=== PATIENT | male | born 1965 | race Caucasian/White ===

== ENCOUNTER → 2023-11-27 08:37 | Outpatient (BNVA) | payer OTHER, SELFPAY | PROVIDERS: PCP Family Medicine; Visit Provider Family Medicine | DX: Z12.11 Encounter for screening for malignant neoplasm of colon (principal); Z80.0 Family history of malignant neoplasm of digestive organs; H26.9 Unspecified cataract; E78.5 Hyperlipidemia, unspecified; E11.9 Type 2 diabetes mellitus without complications; Z12.5 Encounter for screening for malignant neoplasm of prostate; Z79.899 Other long term (current) drug therapy | CPT/HCPCS: 80053; 80061; 82043; 82607; 83036; 84443 ==

== ENCOUNTER → 2024-05-18 14:54 | Outpatient (BNVA) | payer OTHER, SELFPAY | PROVIDERS: PCP Family Medicine; Visit Provider Family Medicine | DX: E11.9 Type 2 diabetes mellitus without complications (principal) | CPT/HCPCS: 80048; 83036 ==

== ENCOUNTER → 2024-06-02 13:46 | Outpatient (BNVA) | payer OTHER, SELFPAY | PROVIDERS: PCP Family Medicine; Visit Provider Family Medicine | DX: N20.0 Calculus of kidney (principal) | CPT/HCPCS: 81000 ==

== ENCOUNTER → 2024-08-17 14:29 | Outpatient (BNVA) | payer OTHER, SELFPAY | PROVIDERS: PCP Family Medicine; Visit Provider Family Medicine | DX: E11.9 Type 2 diabetes mellitus without complications (principal) | CPT/HCPCS: 80053; 80061; 82607; 83036 ==

== ENCOUNTER → 2024-11-16 14:55 | Outpatient (BNVA) | payer OTHER, SELFPAY | PROVIDERS: PCP Family Medicine; Visit Provider Family Medicine | DX: E11.9 Type 2 diabetes mellitus without complications (principal) | CPT/HCPCS: 80053; 80061; 82607; 83036 ==

== ENCOUNTER 2025-01-30 18:25 | Inpatient (IN) | payer OTHER, SELFPAY ==
[2025-01-30] VITALS (11 sets, daily range): BP systolic 119–163; BP diastolic 62–89; PULSE 72–98; RESP 11–21; TEMP 36.7–36.9; O2SAT 89–97; BMI 24.5
--- NOTE | 2025-01-30 18:37 | CTR_ITS ---
PROCEDURE INFORMATION: Exam: CTA Head With Contrast, Arteriography Exam date and time: 01/30/2025 6:48 PM Age: 59 years old Clinical indication: Stroke-like symptoms; Dizziness/giddiness and headache and other: Left sided neck pain; Additional info: Patient states has been having left sided neck pain since yesterday. C/O of sudden onset of CARRION with dizziness that started approximately three hours prior to er arrival today. History of pituitary tumor resection. TECHNIQUE: Imaging protocol: Computed tomographic angiography of the head with contrast. Exam focused on the arteries. 3D rendering (Not supervised by radiologist): MIP and/or 3D reconstructed images were created by the technologist. Radiation optimization: All CT scans at this facility use at least one of these dose optimization techniques: automated exposure control; mA and/or kV adjustment per patient size (includes targeted exams where dose is matched to clinical indication); or iterative reconstruction. Contrast material: OMNI 350; Contrast volume: 100 ml; Contrast route: INTRAVENOUS (IV); COMPARISON: CT head thrombolytic [id number] 01/30/2025 6:48 PM RADIATION DOSE METRICS: Total DLP (mGy-cm): 417.3 FINDINGS: ANTERIOR CIRCULATION: Right internal carotid artery: Patent. Right middle cerebral artery: Patent. Right anterior cerebral artery: Patent. Left internal carotid artery: Patent. Left middle cerebral artery: Patent. Left anterior cerebral artery: Patent. POSTERIOR CIRCULATION: Right vertebral artery: Patent. Dominant. Left vertebral artery: Occluded distal left vertebral artery. Basilar artery: Patent. Right posterior cerebral artery: Patent. Left posterior cerebral artery: Patent. PROCEDURE INFORMATION: Exam: CTA Neck With Contrast Exam date and time: 01/30/2025 6:48 PM Age: 59 years old Clinical indication: Stroke-like symptoms; Dizziness/giddiness and headache and other: Left sided neck pain; Additional info: Patient states has been having left sided neck pain since yesterday. C/O of sudden onset of CARRION with dizziness that started approximately three hours prior to er arrival today. History of pituitary tumor resection. TECHNIQUE: Imaging protocol: Computed tomographic angiography of the neck with contrast. Exam focused on the cervical segments of the vasculature. 3D rendering (Not supervised by radiologist): MIP and/or 3D reconstructed images were created by the technologist. Radiation optimization: All CT scans at this facility use at least one of these dose optimization techniques: automated exposure control; mA and/or kV adjustment per patient size (includes targeted exams where dose is matched to clinical indication); or iterative reconstruction. Contrast material: OMNI 350; Contrast volume: 100 ml; Contrast route: INTRAVENOUS (IV); COMPARISON: CT head thrombolytic [id number] 01/30/2025 6:48 PM RADIATION DOSE METRICS: Total DLP (mGy-cm): 417.3 FINDINGS: Right common carotid artery: Patent. No evidence of hemodynamically significant stenosis. Right internal carotid artery: Patent. No evidence of hemodynamically significant stenosis. Right external carotid artery: Patent. Left common carotid artery: Patent. No evidence of hemodynamically significant stenosis. Left internal carotid artery: Patent. No evidence of hemodynamically significant stenosis. Left external carotid artery: Patent. Right vertebral artery: Patent. Dominant. Left vertebral artery: There is occlusion of the distal left vertebral artery V2 segment, V3 and V4 segments. The left vertebral artery is developmentally diminutive. Soft tissues: No gross soft tissue abnormality. No evidence of fluid collection or hematoma. 3.5 x 2.5 cm left-sided thyroid nodule/mass. 1.5 cm right-sided thyroid nodule. Bones/joints: No evidence of acute fracture or subluxation of the cervical spine. Moderate multilevel uncovertebral hypertrophy and facet arthrosis. CT/CT angio headneck* [id number] IMPRESSION: 1. Occlusion of the distal left vertebral artery concerning for acute thrombosis. 2. Vessels of the [id number] are patent. IMPRESSION: 1. Occlusion of the distal left vertebral artery concerning for acute thrombosis. 2. No evidence of hemodynamically significant stenosis with thrombosis of the carotids. 3. Left-sided thyroid nodule/mass. Correlation with thyroid function tests and follow-up outpatient thyroid ultrasound is recommended. The findings were verbally communicated by telephone with Dr. MENA at 7:19 PM CDT on 01/30/2025. REFERENCES: NASCET CRITERIA. The degree of stenosis in the cervical segment of the internal carotid artery is based on NASCET criteria. Normal is no stenosis. Mild is less than 50% stenosis. Moderate is 50-69% stenosis. Severe is 70% to 99% stenosis. Total occlusion is no detectable patent lumen.
--- NOTE | 2025-01-30 18:37 | ECG_ITS ---
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 Measurements Intervals [place] Rate: 73 P: 69 [place]: 147 QRS: -24 QRSD: 126 T: 54 QT: 382 QTc: 422 Interpretive Statements SINUS RHYTHM POSSIBLE RIGHT VENTRICULAR CONDUCTION DELAY [RSR (QR) IN V1/V2] POSSIBLE LATERAL MYOCARDIAL INFARCTION , PROBABLY OLD [30 ms Q WAVE IN I/aVL/V5/V6] No previous ECG available for comparison Electronically Signed On 01-31-2025 21:15:15 CDT by Bonnie Musa M.D. [email or web address]
--- NOTE | 2025-01-30 18:37 | CTR_ITS ---
PROCEDURE INFORMATION: Exam: CT Head Without Contrast Exam date and time: 01/30/2025 6:48 PM Age: 59 years old Clinical indication: Stroke-like symptoms; Dizziness/giddiness and headache and other: Left sided neck pain. ; Additional info: Symptoms of acute stroke TECHNIQUE: Imaging protocol: Computed tomography of the head without contrast. Radiation optimization: All CT scans at this facility use at least one of these dose optimization techniques: automated exposure control; mA and/or kV adjustment per patient size (includes targeted exams where dose is matched to clinical indication); or iterative reconstruction. Other technique: STROKE PROTOCOL was implemented. COMPARISON: CT angio headneck* [id number] 01/30/2025 6:48 PM RADIATION DOSE METRICS: Total DLP (mGy-cm): 1225.8 FINDINGS: Brain: No evidence of intra-axial or extra-axial hemorrhage. No mass effect or midline shift. Ocasio-white differentiation is maintained. Basilar cisterns are patent. Cerebral ventricles: No hydrocephalus. Paranasal sinuses: The visualized paranasal sinuses are well aerated. Mastoid air cells: The visualized mastoids and middle ears are clear. Bones: Calvarium is intact. No evidence of acute fracture. Soft tissues: No gross soft tissue abnormality. CT/CT head thrombolytic [id number] IMPRESSION: 1. No acute intracranial abnormality. ASSESSMENT: ASPECTS ([place] Stroke Program Early CT Score) is 10.
[2025-01-30 18:42] LABS: Glucose Point of Care 153 mg/dL (70-110)
[2025-01-30 18:46] LABS: Basophils # 0.1 10^3/uL (0.0-0.1); Basophils % 0.6 %; Eosinophils # 0.2 10^3/uL (0.0-0.8); Eosinophils % 1.2 %; Hematocrit 44.2 % (37-53); Lymphocytes # 4.7 10^3/uL (0.8-4.8); Lymphocytes % 37.6 %; Mean Corpuscular HGB Conc 33.7 g/dL (30-55); Mean Corpuscular Hemoglobin 29.4 pg (27-33); Mean Corpuscular Volume 87.2 fl (82-101); Mean Platelet Volume 10.6 fL (7.4-10.4); Monocytes % 7.7 %; Neutrophils # 6.52 10^3/uL (1.8-7.7); Neutrophils % 52.6 %; Nucleated Red Blood Cells % 0 %; Platelet Count 291 10^3/cmm (157-399); Red Blood Count 5.07 10^6/uL (3.85-5.65); Red Cell Distribution Width 12.8 % (12.1-15.1); White Blood Count 12.41 10^3/uL (3.29-11.43)
[2025-01-30] MEDS: ondansetron 2 mg/ML SDV 2 mL 4 MG IVP (18:46)
[2025-01-30] MEDS: LORazepam 2 mg/mL INJ 1 mL 1 MG IVP (18:48)
[2025-01-30] MEDS: iohexol 350 mg/mL 500 mL Btl (per mL) IV (18:59)
--- NOTE | 2025-01-30 19:02 | W.ED.DIZZY ---
HPI - Dizziness General: Chief Complaint: Dizziness Stated Complaint: headache dizzy n/v no balance Time Seen by Provider: 01/30/25 18:36 History of Present Illness: HPI Narrative: 59-year-old smoker presenting with intense headache, dizziness, inability to stand or walk that started 3 hours ago. He states his head does not really hurt, pain is at the base of his neck on the left side. He is dizzy and has no balance. There is no vision loss. No language problem. No slurred speech. No weakness, numbness, or tingling. He is very nauseated. No history of trauma. Related Data Home Medications ?Medication ?Instructions ?Recorded ?Confirmed cholecalciferol (vitamin D3) 25 25 mcg PO DAILY 10/20/23 11/16/24 mcg (1,000 unit) capsule vitamin B comp and C no.3 15 mg-10 1 cap PO DAILY 10/20/23 11/16/24 mg-50 mg-5 mg-300 mg capsule (B Complex Plus Vitamin C) Previous Rx's ?Medication ?Instructions ?Recorded atorvastatin 40 mg tablet See Rx Instructions .Route 10/29/24 .COMPLEX #90 tabs fenofibrate nanocrystallized 48 mg See Rx Instructions .Route 12/28/24 tablet .COMPLEX #90 tabs metformin 500 mg tablet 1,000 mg (2 x 500 mg) PO BID #360 01/01/25 tabs semaglutide 1 mg/dose (4 mg/3 mL) See Rx Instructions .Route 01/18/25 subcutaneous pen injector (Ozempic) .COMPLEX #3 mL Allergies Allergy/AdvReac Type Severity Reaction Status Date / Time No Known Allergies Allergy Verified 01/30/25 18:31 COUNTS INCLUDE 234 BEDS AT THE [facility] ED PFSH: Medical History Smoker Family history of colon cancer Hyperlipidemia Diabetes mellitus Surgical History Hx of colonoscopy 2-3 yrs ago- [place] Hx of appendectomy Family History Mother Colon cancer Lung cancer Father Bladder cancer Prostate cancer Social History (Updated 01/30/25 @ 22:02 by Lewis Prasad MD) Smoking and tobacco/nicotine status: current every day tobacco/nicotine user cigarettes Packs smoked per day: 1 Quit status (tobacco/nicotine): considering quitting Alcohol intake: current Alcohol intake frequency: holidays/special occasions only Substance/Drug Use: never Additional social history: Wants full code and this was discussed on January 30 2025 with patient and Lives independently: Yes Marital status: Number of children: 2 service: Yes status details: [id number] ([employer]) 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: [employer] Current occupational status: retired 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 Wendy/Sikh: Rastafarian Special wendy needs: No Agree to transfusion: Yes Physical Exam Const: COMMON NORMALS: no acute distress GENERAL APPEARANCE: cooperative, in distress, anxious and ill appearing HENMT: COMMON NORMALS: normocephalic, atraumatic and Normal external nose present HEAD & SCALP: normocephalic and atraumatic FACE & SINUS: normal facial exam and face symmetric NOSE: Normal external nose present Eye: COMMON NORMALS: Equal, round and reactive pupils present and EOMs intact bilaterally PUPIL: Yes Equal, round and reactive pupils present Neck/C-Spine: GENERAL: Yes trachea midline Chest: CHEST: Yes Symmetrical chest wall rise Resp: COMMON NORMALS: normal respiratory effort, No retractions, No use of accessory muscles and clear to auscultation bilaterally AUSCULTATION: clear to auscultation bilaterally Cardio: COMMON NORMALS: regular rate and regular rhythm RATE: regular rate RHYTHM: regular rhythm GI: COMMON NORMALS: Normal to inspection, nondistended, normoactive bowel sounds present Extremity: COMMON NORMALS: no pedal edema Neuro: ERIC COMA SCALE: document GCS findings [place] coma scale eye opening: Spontaneous [place] coma scale verbal response: Orientated [place] coma scale motor response: Obey commands Eric coma scale total score: 15 SENSORY EXAM: Yes extremities (intact) Psych: COMMON NORMALS: speech normal SPEECH: Yes normal speech Skin: COMMON NORMALS: no rashes or lesions noted GENERAL SKIN EXAM: no rashes or lesions noted Course Vital Signs: Vital signs: Vital Signs Temperature 98.5 F 01/30/25 23:57 Pulse Rate 74 01/30/25 23:57 Respiratory Rate 18 01/30/25 23:57 Blood Pressure 141/85 01/30/25 23:57 Pulse Oximetry 95 01/30/25 22:48 Oxygen Delivery Me thod Nasal Cannula 01/30/25 22:45 Oxygen Flow Rate 2 01/30/25 22:45 MDM - Dizziness Medical Decision Making Mr. Briceño has an intense left-sided high neck pain, with significant dizziness. He is photophobic. Stroke alert was called, due to his intense symptoms, and onset within [address] is negative. CTA of the head shows occlusion of the distal left vertebral artery concerning for acute thrombosis. This matches his symptoms to some degree. I consulted with neurology at [facility] in [place], who is our stroke alert team this weekend, and Dr. Gould has seen the patient in consultation in the room. He advised despite the low stroke scale, given the patient's intense dizziness, to give TNKase. TNKase was given. Patient is still experiencing headache. Somewhat less dizziness, as the patient is able to stand. He does not recommend transfer for thrombectomy at this point, given the stroke scale of 0. Patient is still having significant headache. Dizziness is somewhat improved. Vitals are stable. He will go to the ICU. Spoke with neurology again. Neurology declines transfer for potential thrombectomy given low stroke scale, low likelihood intervention would be successful. Hospitalist will admit the patient. He is seeing the patient in the ER. Lab Data 01/30/25 18:40 01/30/25 18:[address] 01/30/25 18:37 IMPRESSION: 1. No acute intracranial abnormality. ASSESSMENT: ASPECTS ([place] Stroke Program Early CT Score) is 10. ADDENDUM: 01/30/251919 The findings were verbally communicated by telephone with Dr. MENA at 7:19 PM CDT on 01/30/2025. Head/Neck CTA 01/30/25 18:37 IMPRESSION: 1. Occlusion of the distal left vertebral artery concerning for acute thrombosis. 2. Vessels of the [id number] are patent. IMPRESSION: 1. Occlusion of the distal left vertebral artery concerning for acute thrombosis. 2. No evidence of hemodynamically significant stenosis with thrombosis of the carotids. 3. Left-sided thyroid nodule/mass. Correlation with thyroid function tests and follow-up outpatient thyroid ultrasound is recommended. The findings were verbally communicated by telephone with Dr. MENA at 7:19 PM CDT on 01/30/2025. REFERENCES: NASCET CRITERIA. The degree of stenosis in the cervical segment of the internal carotid artery is based on NASCET criteria. Normal is no stenosis. Mild is less than 50% stenosis. Moderate is 50-69% stenosis. Severe is 70% to 99% stenosis. Total occlusion is no detectable patent lumen. Laboratory Results WBC 12.41 10^3/uL (3.29-11.43) H 01/30/25 18:40 RBC 5.07 10^6/uL (3.85-5.65) 01/30/25 18:40 Hgb 14.90 g/dL (11.27-16.99) 01/30/25 18:40 Hct 44.2 % (37-53) 01/30/25 18:40 MCV 87.2 fl (82-101) 01/30/25 18:40 MCH 29.4 pg (27-33) 01/30/25 18:40 MCHC 33.7 g/dL (30-55) 01/30/25 18:40 RDW 12.8 % (12.1-15.1) 01/30/25 18:40 Plt Count 291 10^3/cmm (157-399) 01/30/25 18:40 MPV 10.6 fL (7.4-10.4) H 01/30/25 18:40 Neut % (Auto) 52.6 % 01/30/25 18:40 Lymph % (Auto) 37.6 % 01/30/25 18:40 [place] % (Auto) 7.7 % 01/30/25 18:40 Eos % (Auto) 1.2 % 01/30/25 18:40 Baso % (Auto) 0.6 % 01/30/25 18:40 Neut # (Auto) 6.52 10^3/uL (1.8-7.7) 01/30/25 18:40 Lymph # (Auto) 4.7 10^3/uL (0.8-4.8) 01/30/25 18:40 [place] # (Auto) 1.0 10^3/uL (0.2-0.9) H 01/30/25 18:40 Eos # (Auto) 0.2 10^3/uL (0.0-0.8) 01/30/25 18:40 Baso # (Auto) 0.1 10^3/uL (0.0-0.1) 01/30/25 18:40 Nucleated RBC % (auto) 0 % 01/30/25 18:40 Nucleated RBCs # 0.0 /100WBC 01/30/25 18:40 PT 11.90 SECONDS (12.1-14.9) L 01/30/25 18:40 INR 0.82 (0.8-1.2) 01/30/25 18:40 APTT 27.4 SECONDS (23.9-36.7) 01/30/25 18:40 Sodium 142 mmol/L (136-145) 01/30/25 18:40 Potassium 3.9 mmol/L (3.5-5.1) 01/30/25 18:40 Chloride 106 mmol/L (98-107) 01/30/25 18:40 Carbon Dioxide 22 mmol/L (22-29) 01/30/25 18:40 Anion Gap 17.9 (5-19) 01/30/25 18:40 BUN 11 mg/dL (6-20) 01/30/25 18:40 Creatinine 0.8 mg/dL (0.7-1.2) 01/30/25 18:40 GFR Calculation 99.3 mL/min (90-130) 01/30/25 18:40 Glucose 152 mg/dL (65-115) H 01/30/25 18:40 POC Glucose 153 mg/dL (70-110) H 01/30/25 18:38 Calculated Osmolality 296 mOsm/kg (285-295) H 01/30/25 18:40 Calcium 9.3 mg/dL (8.5-10.5) 01/30/25 18:40 Total Bilirubin 0.2 mg/dL (0.15-1.2) 01/30/25 18:40 AST 16 U/L (0-40) 01/30/25 18:40 ALT 15 U/L (0-41) 01/30/25 18:40 Alkaline Phosphatase 84 U/L (40-130) 01/30/25 18:40 Total Protein 6.9 g/dL (6.6-8.7) 01/30/25 18:40 Albumin 4.2 g/dL (3.5-5.2) 01/30/25 18:40 Globulin 2.7 g/dL (1.3-4.6) 01/30/25 18:40 Ethyl Alcohol < 10 mg/dL (0-10) 01/30/25 18:40 All radiology interpretation(s) finalized by discharge Discharge Plan Discharge Patient Disposition: Admitted As Inpatient Admit Provider: Lewis Parsad Clinical Impression: Occlusion of left vertebral artery Condition: Serious Coding Level of Care Code ED Engraving Supervisor for Lenorag Alexa NIH stroke score NIHSS Level Of Consciousness - 1a: 0 Level Of Consciousness Questions - 1b: Both Correct Level Of Consciousness Commands - 1c: Both Correct Best Gaze - 2: Normal Visual Kaur - 3: No Visual Loss Facial Palsy - 4: Normal Motor Arm Right - 5: No Drift Motor Arm Left - 5: No Drift Motor Leg Right - 6: No Drift Motor Leg Left - 6: No Drift Limb Ataxia - 7: Absent Sensory - 8: Normal Best Language - 9: No Aphasia Dysarthia - 10: Normal Extinction And Inattention - 11: 0 Score Total Score: 0
[2025-01-30 19:07] LABS: Alanine Aminotransferase 15 U/L (0-41); Albumin Level 4.2 g/dL (3.5-5.2); Alkaline Phosphatase 84 U/L (40-130); Anion Gap 17.9 (5-19); Aspartate Amino Transferase 16 U/L (0-40); Blood Urea Nitrogen 11 mg/dL (6-20); Calcium 9.3 mg/dL (8.5-10.5); Carbon Dioxide 22 mmol/L (22-29); Chloride 106 mmol/L (98-107); Creatinine Clr Calc Pharmacy 109.5207; Globulin 2.7 g/dL (1.3-4.6); Glomerular Filtration Rate 99.3 mL/min (90-130); Glucose 152 mg/dL (65-115); Osmolality Calculated 296 mOsm/kg (285-295); Potassium 3.9 mmol/L (3.5-5.1); Sodium 142 mmol/L (136-145); Total Bilirubin 0.2 mg/dL (0.15-1.2); Total Protein 6.9 g/dL (6.6-8.7)
[2025-01-30 19:09] LABS: Alcohol Level < 10 mg/dL (0-10)
[2025-01-30 19:18] LABS: INR 0.82 (0.8-1.2)
[2025-01-30 19:19] LABS: Partial Thromboplastin Time 27.4 SECONDS (23.9-36.7)
[2025-01-30] MEDS: fentaNYL 50 mcg/mL INJ 2mL IVP ×2 (19:23→21:00)
[2025-01-30] MEDS: tenecteplase 50mg Kit (STROKE) 20 MG IVP (19:56)
[2025-01-30] MEDS: morphine 4 mg/mL SDV 1 mL IVP (20:16)
[2025-01-30] MEDS: valproic acid inj 500 MG in sodium chloride 0.9% 50 ML 55 MG IV (20:16)
[2025-01-30] MEDS: sodium chloride 0.9% 1,000 ML 999 ML IV (21:44)
[2025-01-30] MEDS: prochlorperazine 10 mg/2 mL Inj 5 MG IVP (21:44)
[2025-01-30] MEDS: HYDROmorphone 0.5 MG/0.5 ML INJ 1 MG IVP (21:44)
--- NOTE | 2025-01-30 21:53 | P.HP_ITS ---
Providers/Chief Complaint 2 Admitting Physician: Lewis Prasad MD Primary Care Provider: Rossana Brink MD Chief Complaint: headache dizzy n/v no balance pituitary adanoma History of Present Illness Miguel Covington is a 59 year old male With history of pituitary adenomyoma 2019 with history of pituitary adenoma around 2019 resected. The patient has been off balance with headache starting yesterday. He reports 3/10 pain in the left neck associated with imbalance. The room was not spinning. The loss of balance or inability to walk resolved when the headache or neck pain resolved. Today it occurred again and he reports right sided 3/10 discomfort that resolved and then severe left 5/10 pain associated with imbalance. He went home from [facility] kitchen around 2 PM and took a hot shower and then used to heating pad for 10 to 15 minutes on his left neck. Subsequent to that in the ER he was found to have an occluded left vertebral artery treated with tPA and his headache dropped from 7.5 down to 5 and now back up to 7 but is associated in the occiput instead of the left neck. Patient has not had limb weakness he did have some nausea but no vomiting. He has no nausea now denies visual trouble. He is accompanied by his Faith. Patient wants full CODE STATUS Past medical history MRSA nonsecreting pituitary adenoma past surgical history pituitary adenoma resection MRSA ENT surgery appendectomy and ileectomy Review of Systems 2 Narrative: General positive for weight loss 8 pounds in 1 year on Ozempic he also takes metformin. Blood sugars coming down and A1c running 7.8. Cardiovascular no chest pain palpitations or leg edema Respiratory positive for cough for 5 to 8 days no fever or production GI no nausea vomiting diarrhea constipation no dysuria hematuria incontinence he denies importance Neuro no history of seizures he did have a TIA about 4 years ago but workup was equivocal. Patient did have a nonsecreting pituitary adenoma 2019 Heme no history of cancer Infectious he had MRSA with ENT surgery 2019 Medications/Allergies Home Medications ?Medication ?Instructions ?Recorded ?Confirmed ?Last Taken ?Type cholecalciferol (vitamin D3) 25 25 mcg PO DAILY 11/16/24 Unknown History mcg (1,000 unit) capsule vitamin B comp and C no.3 15 mg-10 1 cap PO DAILY 09/2211/16/24 Unknown History mg-50 mg-5 mg-300 mg capsule (B Complex Plus Vitamin C) atorvastatin 40 mg tablet See Rx Instructions .Route 0 10/29/24 11/16/24 Unknown Rx .COMPLEX #90 tabs fenofibrate nanocrystallized 48 mg See Rx Instructions .Route 12/28/24 Unknown Rx tablet .COMPLEX #90 tabs metformin 500 mg tablet 1,000 mg (2 x 500 mg) PO BID #360 01/01/25 Unknown Rx tabs semaglutide 1 mg/dose (4 mg/3 mL) See Rx Instructions .Route 01/18/25 Unknown Rx subcutaneous pen injector (Ozempic) .COMPLEX #3 mL Allergies Allergy/AdvReac Type Severity Reaction Status Date / Time No Known Allergies Allergy Verified 01/30/25 18:31 PFSH Acute 2 PFSH: Medical History Smoker Family history of colon cancer Hyperlipidemia Diabetes mellitus Surgical History Hx of colonoscopy 2-3 yrs ago- [place] Hx of appendectomy Family History Mother Colon cancer Lung cancer Father Bladder cancer Prostate cancer Social History (Updated 01/30/25 @ 22:02 by Lewis Prasad MD) Smoking and tobacco/nicotine status: current every day tobacco/nicotine user cigarettes Packs smoked per day: 1 Quit status (tobacco/nicotine): considering quitting Alcohol intake: current Alcohol intake frequency: holidays/special occasions only Substance/Drug Use: never Additional social history: Wants full code and this was discussed on January 30 2025 with patient and Lives independently: Yes Marital status: Number of children: 2 service: Yes status details: [id number] ([employer]) then 2 years of [employer] branch: [employer] Current occupational status: retired 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 He is laying in mild Trendelenburg with his eyes closed. Neck supple no bruits CV regular rate and rhythm Lungs clear to auscultation bilaterally Abdomen positive bowel sounds soft nontender No tenderness cord to tip edema Neuro handgrips equal face is symmetric pupils equally round and reactive to light accommodation straight leg lifting normal strength ankle flexion extension normal 5/5 bilateral Data 01/30/25 18:40 01/30/25 18:40 A&P Assessment and plan (1) Occlusion of left vertebral artery: Patient had tPA. He will be admitted to the ICU with goal blood pressure below 180/110 blood sugar between 60 and 180, aspirin to start in 24 hours. Lovenox held for no real indication at this time. I am going to add factor V Leiden protein C and S Antithrombin III to his labs Sounds like he may have had problem with his ileum before and then now problem with vertebral occlusion echocardiogram and telemetry if headache worsens to will need CT. (2) Diabetes mellitus: Resume metformin. I see no reason to discontinue outpatient Ozempic. He will be on sliding scale insulin PDMP PDMP Reviewed: Not Reviewed Attestations 2 Medical Necessity Statement*: Patient will be in the hospital for 2 midnights but has already been made inpatient based on acute stroke with thrombolytics. Coding Level of Care Code Acute Code for g Fwd Diagnoses Occlusion of left vertebral artery I65.02 Diabetes mellitus E11.9 Time Spent (min) 75
[2025-01-30] MEDS: atorvastatin 40 mg Tablet 20 MG PO (23:19)
[2025-01-30] MEDS: labetalol 5 mg/mL SDV 20mL 10 MG IVP (23:22)
[2025-01-31] VITALS (45 sets, daily range): BP systolic 104–149; BP diastolic 54–83; PULSE 58–93; RESP 12–27; TEMP 36.6–37.1; O2SAT 90–99; BMI 24.5
[2025-01-31 05:02] LABS: Add Urine Microscopic? NO
[2025-01-31] MEDS: oxyCODONE 5 mg IR Tab/Cap PO ×2 (05:12→17:10)
[2025-01-31 05:13] LABS: Amphetamines Screen Urine Negative (Negative); Barbiturates Screen Urine Negative (Negative); Benzodiazepines Screen Urine Positive (Negative); Cocaine Screen Urine Negative (Negative); Opiate Screen Urine Positive (Negative); PCP Screen Urine Negative (Negative); THC Screen Urine Negative (Negative)
[2025-01-31 05:14] LABS: Bilirubin Urine Neg (Negative); Blood Urine Neg (Negative); Glucose Urine UA Norm (Normal); Ketones Urine Negative (Negative); Leukocyte Esterase Urine Negative (Negative); Nitrate Urine Negative (Negative); Protein Urine Trace (Negative); Specific Gravity, Urine 1.005 (1.005-1.030); Urine Appearance Clear (CLEAR); Urine Color Yellow (Yellow); Urobilinogen Urine Norm (Negative); pH Urine 6.5 (5-7)
[2025-01-31 05:15] LABS: Charge for UA Resulting for Rev
[2025-01-31 05:17] LABS: Bacteria Urine None Seen /hpf; Hyaline Casts Urine 1.65 /lpf; RBC Urine 0-2 /hpf (0-2); Squamous Epithelial Cell Urine 0-5 /hpf (0-5); WBC Urine 0-5 /hpf (0-5)
[2025-01-31 08:13] LABS: Glucose Point of Care 108 mg/dL (70-110)
[2025-01-31] MEDS: fenofibrate 48 mg Tablet PO (08:19)
[2025-01-31] MEDS: acetaminophen 325 mg Tablet 650 MG PO ×2 (08:19→19:46)
[2025-01-31] MEDS: nicotine 14 mg Patch 1 PATCH TRANSDERMA (08:20)
[2025-01-31] MEDS: cholecalciferol (vitamin D3) 1,000 unit Tablet 1000 UNIT PO (08:29)
--- NOTE | 2025-01-31 08:32 | USCV_ITS ---
Miguel Covington Age: 59 Gender: M : 1965 Exam Date: 01/31/2025 08:40 Ordering Phys: Bipin Bee MD Technologist: Charan Duncan Exam Location: [facility] Indication: cva BP: 131 / 61 HR: 64 Rhythm: Sinus Technical Quality: Adequate MEASUREMENTS (Male / Female) Normal Values 2D ECHO LV Diastolic Diameter PLAX 5.2 cm 4.2 - 5.9 / 3.9 - 5.3 cm IVS Diastolic Thickness 1.1 cm 0.6 - 1.0 / 0.6 - 0.9 cm IVS Systolic Thickness 1.3 cm LVPW Diastolic Thickness 1.9 cm 0.6 - 1.0 / 0.6 - 0.9 cm LVPW Systolic Thickness 2.4 cm LVOT Diameter 2.0 cm LV Ejection Fraction 2D Teich 60.7 % LV Ejection Fraction MOD 4C 63.0 % LV Ejection Fraction MOD 2C 63.6 % LV Ejection Fraction 2C AL 62.7 % LA Diameter 3.3 cm RA Systolic Volume 4C AL 39.9 ml RA Systolic Volume 4C MOD 39.8 ml LA Sys Volume AL 65.6 cm cubed LA Sys Volume Index AL 32.7 cm cubed/m squared Aorta at Sinotubular Diameter 2.2 cm IVC Diameter 1.8 cm M-MODE LA Ao Ratio MM 1.3 AV Cusp Separation MM 1.9 cm DOPPLER AV Peak Velocity 126.0 cm/s LVOT Peak Velocity 97.0 cm/s AV Area Cont Eq vti 3.4 cm squared AV Area Cont Eq pk 2.4 cm squared MV Peak Velocity 116.0 cm/s MV Area PHT 4.1 cm squared Mitral E to A Ratio 1.1 TR Peak Velocity 221.0 cm/s TR Peak Gradient 19.5 mmHg TR Mean Velocity 190.0 cm/s TR Mean Gradient 14.9 mmHg TR Velocity Time Integral 64.1 cm PV Peak Velocity 99.0 cm/s RV Ejection Time 0.3 s FINDINGS Left Ventricle Normal left ventricular size and systolic function, EF 63%. No regional wall motion abnormalities. Mild left ventricular hypertrophy. Right Ventricle The right ventricle is normal in size and function. Right Atrium The right atrium is normal in size. Agitated saline injection revealed a right to left shunting .found to have greater than 21 bubbles in the left ventricle in a single frame Left Atrium The left atrium is normal in size. Mitral Valve Mild mitral annular calcification. Trace mitral valve regurgitation. Aortic Valve No gross abnormalities Tricuspid Valve Trace tricuspid valve regurgitation. Pulmonic Valve No gross abnormalities noted Pericardium Normal pericardium without effusion. Aorta Normal ascending aorta dimension. IVC Normal inferior vena cava. CONCLUSIONS Normal left ventricular size and systolic function, EF 63%. No regional wall motion abnormalities. Mild left ventricular hypertrophy. Mild mitral annular calcification. Trace mitral valve regurgitation. Trace tricuspid valve regurgitation. There is no pericardial effusion. There are no intracardiac masses. No similar previous studies are available for comparison Bubble studies were performed using saline contrast injection. 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 (Electronically Signed) Final Date: 31 January 2025 13:10 Amended: 31 January 2025 15:57 C
[2025-01-31 11:42] LABS: Glucose Point of Care 188 mg/dL (70-110)
[2025-01-31] MEDS: insulin lispro 100 unit/1 mL SUBCUT ×3 (11:57→20:37)
--- NOTE | 2025-01-31 16:00 | USR_ITS ---
PROCEDURE INFORMATION: Exam: US Duplex Lower Extremity Veins, Bilateral Exam date and time: 01/31/2025 6:39 PM Age: 59 years old Clinical indication: Other: CVA TECHNIQUE: Imaging protocol: Real-time duplex ultrasound of the bilateral extremities with 2-D monk scale, color Doppler flow and spectral waveform analysis including responses to compression and other maneuvers (when performed) with image documentation. Complete exam focused on the lower extremity veins. COMPARISON: No relevant prior studies available. FINDINGS: Right deep veins: Unremarkable. The common femoral, femoral, proximal profunda femoral and popliteal veins are patent without thrombus. Normal Doppler waveforms. Normal compressibility and/or augmentation response. Left deep veins: Unremarkable. The common femoral, femoral, proximal profunda femoral and popliteal veins are patent without thrombus. Normal Doppler waveforms. Normal compressibility and/or augmentation response. Superficial veins: Greater saphenous veins at the saphenofemoral junctions are patent bilaterally without thrombus. Soft tissues: Unremarkable. US/CV venous duplex [facility] [id number] IMPRESSION: No evidence of deep vein thrombosis.
--- NOTE | 2025-01-31 16:14 | P.PN_ITS ---
Subjective 2 Subjective: - Patient was seen this morning, is curr ently alert oriented x 3, following all commands, denies any focal weakness, no blurry vision, no nausea, vomiting, no abdominal pain, no productive aphasia, receptive aphasia - He does complain of some left neck usha n but it is improved compared to yesterday - No dizziness, no syncope, no vertigo - He does report a history of pituitary adenoma - Does report a history of hypertriglyce ridemia, triglycerides over 5000, recently they have trended down to 200 - He does report smoking cigarettes - He does report history of diabetes - He tells me originally his symptomatol ogy was left neck pain with unsteadiness on his feet Vitals/I&O/Wt Last Vital Signs Temp 98.7 F 01/31/25 10:00 Pulse 65 01/31/25 16:00 Resp 15 01/31/25 16:00 BP 122/70 01/31/25 16:00 Pulse Ox 99 01/31/25 16:00 O2 Del Method Room Air 01/31/25 16:00 O2 Flow Rate 2 01/31/25 12:01 FiO2 30 01/31/25 11:45 01/31/25 01/31/25 01/31/25 06:59 14:59 22:59 Intake Total 100 / 100 350 / 350 500 / 850 Output Total 30 / 30 200 / 200 400 / 600 Balance 70 / 70 150 / 150 100 / 250 Weight last 48 hrs Weight 80 kg Weight 80 kg Weight 78.925 kg Weight 79.379 kg Physical Exam 2 Const: COMMON NORMALS: no acute distress and patient oriented x3 Eye: COMMON NORMALS: Equal, round and reactive pupils present and EOMs intact bilaterally PUPIL: Yes Equal, round and reactive pupils present Resp: COMMON NORMALS: normal respiratory effort, No retractions, No use of accessory muscles and clear to auscultation bilaterally AUSCULTATION: clear to auscultation bilaterally Cardio: COMMON NORMALS: regular rate, regular rhythm, S1 normal heart sound present and S2 normal heart sound present RATE: regular rate RHYTHM: r egular rhythm HEART SOUNDS: S1 normal heart sound present and S2 normal heart sound present GI: COMMON NORMALS: Normal to inspection, nondistended, normoactive bowel sounds present and non-tender Extremity: COMMON NORMALS: no pedal edema Neuro: COMMON NORMALS: patient oriented x3, CN's II-XII intact bilaterally, moves all extremities and no focal motor deficits Psych: COMMON NORMALS: mental status grossly normal Data 01/30/25 18:40 01/30/25 18:40 A&P Assessment and plan (1) Occlusion of left vertebral artery: (2) Diabetes mellitus: Resume metformin. I see no reason to discontinue outpatient Ozempic. He will be on sliding scale insulin (3) Acute CVA (cerebrovascular accident): (4) Hypertriglyceridemia: Plan Acute CVA status post tPA - Symptomatology with left neck pain, with imbalance, with headache - NIH stroke scale on admission was 0, given TNKase due to concerns for dizziness - Status post TNKase - CTA head and neck showing occlusion of distal left vertebral artery concerning for acute thrombosis -Cardiac echo shows bubbles found to be traversing the interatrial septum and seen on the left side, suggesting right to left shunt, grade 3, possibly large -I spoke to [facility] 01/31/[address] Church, with the left vertebral thrombosis, cardiac echocardiogram findings above; discussed transfer/urgent CT surgery evaluation, for now neurology has recommended medical management, medical management aspirin, statin, did not recommend anticoagulant therapy, no urgent need for closure or BJC/CT surgery evaluation, we also discussed the possibility of left vertebral artery dissection with patient's complaint of left neck pain, recommended medical management in this case also, aspirin, statin - Risk factors - Smoking - Type 2 diabetes - Hypertriglyceridemia Plan -Check lipid panel - A1c - TSH -Systolic blood pressure less than 180, diastolic less than 110 - Aspirin 81 mg 24-hour status post tPA - Repeat head CT at 7 PM -Will order MRA neck - Atorvastatin 20 mg - Venous ultrasound ordered - Start Lovenox 24 hours status post tPA - Factor modification - Stop smoking - Type 2 diabetes mellitus, low-dose sliding scale - PT OT speech therapy eval Left neck pain - CTA head and neck findings as above - Will order MRA head and neck 3.5 x 2.5 cm left-sided thyroid nodule/mass, 1.5 cm right-sided thyroid nodule, - Will need to follow-up with ENT as outpatient Full code Lovenox for DVT prophylaxis as above PDMP PDMP Reviewed: Not Reviewed Attestations 2 Medical Necessity Statement*: Patient requires hospitalization, inpatient, greater than 2 midnights for acute CVA status post tPA Diagnoses Occlusion of left vertebral artery I65.02 Diabetes mellitus E11.9 Acute CVA (cerebrovascular accident) I63.9 Hypertriglyceridemia E78.1
[2025-01-31 17:07] LABS: Glucose Point of Care 146 mg/dL (70-110)
--- NOTE | 2025-01-31 18:38 | PC.NURSE ---
Pt up out of bed to W/C for CT. Pt bore weight well. VSS. Pt denies dizziness. Pt able to balance on left leg. His right leg drifted/bobbled slightly but was able to recover. It was so slight he was in no immediate danger of falling. He still holds the left back part of his neck and complains of headache of 2-3 now. Oxycodone admin about an hour prior. He did received acetaminophen x1 for CARRION today. Nicotine patch on left upper arm/shoulder. Sinus Rhythm with first degree block noted today. He is afebrile. No Neuro deficits noted. No nausea noted. He is tolerating his measl and eating at least half. He has urinated over 1000ml this shift. NO Bm noted.
--- NOTE | 2025-01-31 19:00 | CTR_ITS ---
PROCEDURE INFORMATION: Exam: CT Head Without Contrast Exam date and time: 01/31/2025 6:23 PM Age: 59 years old Clinical indication: Other: 24 hr tnkase f/u; F/u 24 hour tnkase admin; Additional info: 24 hours S/P tpa at 7pm TECHNIQUE: Imaging protocol: Computed tomography of the head without contrast. Radiation optimization: All CT scans at this facility use at least one of these dose optimization techniques: automated exposure control; mA and/or kV adjustment per patient size (includes targeted exams where dose is matched to clinical indication); or iterative reconstruction. COMPARISON: CT head thrombolytic [id number] 01/30/2025 6:48 PM RADIATION DOSE METRICS: Total DLP (mGy-cm): 1080.38 FINDINGS: Brain: No hemorrhage. More extensive area of infarction seen within the left cerebellar hemisphere. Mild diffuse cerebral atrophy and sequela of chronic small vessel ischemic disease. No mass effect. Cerebral ventricles: No ventriculomegaly. Paranasal sinuses: Visualized sinuses are unremarkable. No fluid levels. Mastoid air cells: Visualized mastoid air cells are well aerated. Bones: Unremarkable. No acute fracture. Soft tissues: Unremarkable. CT/CT head wo con* [id number] IMPRESSION: More extensive area of infarction seen within the left cerebellar hemisphere. No hemorrhage.
--- NOTE | 2025-01-31 19:38 | PC.NURSE ---
Shift summary: Pt rested in bed throughout shift, movement restricted due to TNKASe. VSS. Sinus, first degree block rhythm noted this shift. He utilized oxygen at 2lpm/NC. Per pt it was applied to hopefully help with his H/A. It did not seem to help. He did have acetaminophen once tis am and Oxycodone once this evening. Both provided some relief but H/A still present. He is at this time rubbing is head, while sitting up in chair. Follow-up CT of head completed. Veinous US of bilat legs completed this evening. No deficits noted per neuro checks and NIH stroke scale. No difficulty urinating. 1050 ml of outout noted. NO Bm noted. He has an adequate appetite, eating at least half of his meals.
--- NOTE | 2025-01-31 20:05 | PC.NURSE ---
Pt says he has insomnia and takes sleep aids at home, has requested something to help him sleep. New order for 30 mg restoril PO PRN per Dr. Prasad.
[2025-01-31 20:07] LABS: Basophils # 0.1 10^3/uL (0.0-0.1); Basophils % 0.6 %; Eosinophils # 0.2 10^3/uL (0.0-0.8); Eosinophils % 1.3 %; Hematocrit 40.6 % (37-53); Lymphocytes # 3.6 10^3/uL (0.8-4.8); Lymphocytes % 31.2 %; Mean Corpuscular HGB Conc 32.8 g/dL (30-55); Mean Corpuscular Hemoglobin 29.4 pg (27-33); Mean Corpuscular Volume 89.8 fl (82-101); Mean Platelet Volume 10.7 fL (7.4-10.4); Monocytes # 0.8 10^3/uL (0.2-0.9); Monocytes % 6.7 %; Neutrophils # 6.89 10^3/uL (1.8-7.7); Neutrophils % 59.9 %; Nucleated Red Blood Cells % 0 %; Platelet Count 245 10^3/cmm (157-399); Red Blood Count 4.52 10^6/uL (3.85-5.65); Red Cell Distribution Width 12.8 % (12.1-15.1)
[2025-01-31 20:31] LABS: Estmated Average Glucose 186; Hemoglobin A1C 8.1 % (4.0-6.0)
[2025-01-31 20:34] LABS: Glucose Point of Care 223 mg/dL (70-110)
[2025-01-31] MEDS: atorvastatin 40 mg Tablet 20 MG PO (20:36)
[2025-01-31 20:40] LABS: Anion Gap 13.5 (5-19); Blood Urea Nitrogen 9 mg/dL (6-20); Carbon Dioxide 26 mmol/L (22-29); Chloride 107 mmol/L (98-107); Chol HDL Ratio 3.67 mg/dL (1.0-5.00); Cholesterol 143 mg/dL (0-200); Creatinine Clr Calc Pharmacy 125.5706; Glomerular Filtration Rate 115.8 mL/min (90-130); Glucose 213 mg/dL (65-115); HDL Cholesterol 39 mg/dL (60-100); LDL Cholesterol Calculated 68 mg/dL (50-129); LDL HDL Ratio 1.74 RATIO (0.00-3.22); Osmolality Calculated 299 mOsm/kg (285-295); Potassium 4.5 mmol/L (3.5-5.1); Sodium 142 mmol/L (136-145); Thyroid Stimulating Hormone 1.64 uIU/mL (0.27-4.20); Triglycerides 178 mg/dL (0-150)
[2025-01-31] MEDS: temazepam 15 mg Capsule 30 MG PO (21:22)
[2025-01-31] MEDS: aspirin 81 mg EC Tablet PO (22:01)
[2025-02-01] VITALS (20 sets, daily range): BP systolic 124–164; BP diastolic 66–102; PULSE 62–88; RESP 12–27; TEMP 36.6–36.7; O2SAT 91–98
[2025-02-01] MEDS: oxyCODONE 5 mg IR Tab/Cap PO (02:30)
[2025-02-01] MEDS: acetaminophen 325 mg Tablet 650 MG PO (03:57)
[2025-02-01] MEDS: enoxaparin 40 mg/0.4 mL Syringe SUBCUT (04:00)
[2025-02-01 05:23] LABS: Basophils # 0.1 10^3/uL (0.0-0.1); Basophils % 0.5 %; Eosinophils # 0.2 10^3/uL (0.0-0.8); Eosinophils % 1.7 %; Hematocrit 43.4 % (37-53); Lymphocytes # 4.8 10^3/uL (0.8-4.8); Lymphocytes % 37.8 %; Mean Corpuscular HGB Conc 32.5 g/dL (30-55); Mean Corpuscular Hemoglobin 29.6 pg (27-33); Mean Corpuscular Volume 91.2 fl (82-101); Mean Platelet Volume 11.1 fL (7.4-10.4); Monocytes # 0.9 10^3/uL (0.2-0.9); Neutrophils # 6.69 10^3/uL (1.8-7.7); Neutrophils % 52.7 %; Nucleated Red Blood Cells % 0 %; Platelet Count 269 10^3/cmm (157-399); Red Blood Count 4.76 10^6/uL (3.85-5.65); Red Cell Distribution Width 12.7 % (12.1-15.1); White Blood Count 12.71 10^3/uL (3.29-11.43)
[2025-02-01 05:47] LABS: Alanine Aminotransferase 12 U/L (0-41); Alkaline Phosphatase 70 U/L (40-130); Anion Gap 14.9 (5-19); Aspartate Amino Transferase 15 U/L (0-40); Blood Urea Nitrogen 7 mg/dL (6-20); Calcium 9.2 mg/dL (8.5-10.5); Carbon Dioxide 23 mmol/L (22-29); Chloride 109 mmol/L (98-107); Creatinine Clr Calc Pharmacy 146.4991; Glomerular Filtration Rate 138.4 mL/min (90-130); Glucose 90 mg/dL (65-115); Magnesium 1.6 mg/dL (1.7-2.3); Osmolality Calculated 294 mOsm/kg (285-295); Phosphorus 2.8 mg/dL (2.5-4.5); Potassium 3.9 mmol/L (3.5-5.1); Sodium 143 mmol/L (136-145); Total Bilirubin 0.3 mg/dL (0.15-1.2)
[2025-02-01 05:48] LABS: NT Pro B Type Natriuretic Pept 226 pg/mL (0-125); Procalcitonin 0.03 ng/mL (0-0.5)
[2025-02-01 07:42] LABS: Glucose Point of Care 157 mg/dL (70-110)
--- NOTE | 2025-02-01 08:00 | MR_ITS ---
WS: [id number] MRA HEAD TECHNIQUE: Axial 3-D TOF images obtained with axial images and axial, sagittal, and coronal 2-D reformatted images. CLINICAL INFORMATION: left neck pain COMPARISON: CT 01/31/2025 FINDINGS: Occlusion of the distal LEFT vertebral artery better evaluated on the recent CTA. Basilar artery is patent. Normal vascularity to the PEDIATRIC LPN territory bilaterally. Both ICAs are patent at the skull base. Normal vascularity to the HANY and MCA territories bilaterally. No evidence of proximal flow-limiting stenosis. MR/MR angio head wo con [id number] IMPRESSION: 1. Occlusion of the distal LEFT vertebral artery better evaluated on the recen t CTA 2. Otherwise no evidence of proximal flow-limiting intracranial stenosis
[2025-02-01] MEDS: insulin lispro 100 unit/1 mL SUBCUT (08:11)
[2025-02-01] MEDS: cholecalciferol (vitamin D3) 1,000 unit Tablet 1000 UNIT PO (08:11)
[2025-02-01] MEDS: fenofibrate 48 mg Tablet PO (08:11)
[2025-02-01] MEDS: losartan 50 mg Tablet 25 MG PO (09:40)
--- NOTE | 2025-02-01 09:59 | PC.NURSE ---
lactation coordinator rounds at 0900- visited with patient and , patient was already given stroke education book, answered some questions, gave patient my contact info.
--- NOTE | 2025-02-01 10:35 | P.DS_ITS ---
Discharge Providers Date of Admission: 01/30/25 20:57 Date of Discharge: February 01, 2025 Attending Provider at Admission: Lewis Prasad MD Attending Provider at Discharge: Rocael Teixeira MD Consults: Teleneurology Primary Care Provider: Rossana Brink MD Diagnoses at Discharge Discharge Diagnosis (1) Occlusion of left vertebral artery: Status: Acute (2) Diabetes mellitus: Status: Chronic (3) Acute CVA (cerebrovascular accident): Status: Acute (4) Hypertriglyceridemia: Status: Acute Reason for Visit Reason for Visit: headache dizzy n/v no balance pituitary adanoma Brief History: History as per HPI: Miguel Covington is a 59 year old male With history of pituitary adenomyoma 2019 with history of pituitary adenoma around 2019 resected. The patient has been off balance with headache starting yesterday. He reports 3/10 pain in the left neck associated with imbalance. The room was not spinning. The loss of balance or inability to walk resolved when the headache or neck pain resolved. Today it occurred again and he reports right sided 3/10 discomfort that resolved and then severe left 5/10 pain associated with imbalance. He went home from [facility] [employer] around 2 PM and took a hot shower and then used to heating pad for 10 to 15 minutes on his left neck. Subsequent to that in the ER he was found to have an occluded left vertebral artery treated with tPA and his headache dropped from 7.5 down to 5 and now back up to 7 but is associated in the occiput instead of the left neck. Patient has not had limb weakness he did have some nausea but no vomiting. He has no nausea now denies visual trouble. He is accompanied by his Faith. Patient wants full CODE STATUS Past medical history MRSA nonsecreting pituitary adenoma past surgical history pituitary adenoma resection MRSA ENT surgery appendectomy and ileectomy Hospital Course Hospital Course Patient was admitted to the hospital for evaluation and management post tPA which was given as per recommendation from teleneurology. Repeat CT scan did not show any concerns for hemorrhage. Echocardiogram was done which was concerning for right to left interatrial shunt. Patient worked well with physical therapy/speech therapy and Occupational Therapy. During hospitalization he was found to have elevated blood sugars and blood pressures. His antihypertensive and antidiabetic medications were adjusted. He has been discharged in hemodynamically stable condition advised to follow-up with neurology in 2 weeks, PCP in 1 month. He should also follow-up with cardiology as an outpatient for further management of [id number] intracardiac shunt. Physical Exam Narrative: General well-developed well-nourished male in no acute cardiopulmonary distress He is alert oriented pleasant but does appear to be in some discomfort. He is laying in mild Trendelenburg with his eyes closed. Neck supple no bruits CV regular rate and rhythm Lungs clear to auscultation bilaterally Abdomen positive bowel sounds soft nontender No tenderness cord to tip edema Neuro handgrips equal face is symmetric pupils equally round and reactive to light accommodation straight leg lifting normal strength ankle flexion extension normal 5/5 bilateral Discharge Data Studies Completed and Pending Completed Studies During Hospitalization Category Date Time Status CT angio headneck* [id number] Stat Cat Scan 01/30/25 18:[address] head thrombolytic 22910 Stat Cat Scan 01/30/25 18:[address] head wo con* [id number] Stat Cat Scan 01/31/25 19:00 Completed MRA head [MR angio head wo con [id number]] Routine MRI 02/01/25 08:00 [place] [id number] Routine Ultrasound 01/31/25 16:00 Completed CV. echo w/w bubble cont [id number] Routine Ultrasound 01/31/25 08:32 Completed Pending at discharge Category Date Time Status Complete Blood Count w/Auto AM LABS Lab 02/02/25 04:00 Ordered Complete Blood Count w/Auto AM LABS Lab 02/03/25 04:00 Ordered Comprehensive Metabolic Panel AM LABS Lab 02/02/25 04:00 Ordered Comprehensive Metabolic Panel AM LABS Lab 02/03/25 04:00 Ordered Magnesium AM LABS Lab 02/02/25 04:00 Ordered Magnesium AM LABS Lab 02/03/25 04:00 Ordered Phosphorus AM LABS Lab 02/02/25 04:00 Ordered Phosphorus AM LABS Lab 02/03/25 04:00 Ordered Radiology Impressions Head/Neck CTA 01/30/25 18:37 IMPRESSION: 1. Occlusion of the distal left vertebral artery concerning for acute thrombosis. 2. Vessels of the [id number]-nw-Bimnes are patent. IMPRESSION: 1. Occlusion of the distal left vertebral artery concerning for acute thrombosis. 2. No evidence of hemodynamically significant stenosis with thrombosis of the carotids. 3. Left-sided thyroid nodule/mass. Correlation with thyroid function tests and follow-up outpatient thyroid ultrasound is recommended. The findings were verbally communicated by telephone with Dr. MENA at 7:19 PM CDT on 01/30/2025. REFERENCES: NASCET CRITERIA. The degree of stenosis in the cervical segment of the internal carotid artery is based on NASCET criteria. Normal is no stenosis. Mild is less than 50% stenosis. Moderate is 50-69% stenosis. Severe is 70% to 99% stenosis. Total occlusion is no detectable patent lumen. Venous Duplex 01/31/25 16:00 IMPRESSION: No evidence of deep vein thrombosis. Head CT 01/31/25 19:00 IMPRESSION: More extensive area of infarction seen within the left cerebellar hemisphere. No hemorrhage. Head MRA 02/01/25 08:00 IMPRESSION: 1. Occlusion of the distal LEFT vertebral artery better evaluated on the recent CTA 2. Otherwise no evidence of proximal flow-limiting intracranial stenosis Laboratory Results WBC 12.71 10^3/uL (3.29-11.43) H 02/01/25 04:04 RBC 4.76 10^6/uL (3.85-5.65) 02/01/25 04:04 Hgb 14.10 g/dL (11.27-16.99) 02/01/25 04:04 Hct 43.4 % (37-53) 02/01/25 04:04 MCV 91.2 fl (82-101) 02/01/25 04:04 MCH 29.6 pg (27-33) 02/01/25 04:04 MCHC 32.5 g/dL (30-55) 02/01/25 04:04 RDW 12.7 % (12.1-15.1) 02/01/25 04:04 Plt Count 269 10^3/cmm (157-399) 02/01/25 04:04 MPV 11.1 fL (7.4-10.4) H 02/01/25 04:04 Neut % (Auto) 52.7 % 02/01/25 04:04 Lymph % (Auto) 37.8 % 02/01/25 04:04 Sunflower % (Auto) 7.0 % 02/01/25 04:04 Eos % (Auto) 1.7 % 02/01/25 04:04 Baso % (Auto) 0.5 % 02/01/25 04:04 Neut # (Auto) 6.69 10^3/uL (1.8-7.7) 02/01/25 04:04 Lymph # (Auto) 4.8 10^3/uL (0.8-4.8) 02/01/25 04:04 Sunflower # (Auto) 0.9 10^3/uL (0.2-0.9) 02/01/25 04:04 Eos # (Auto) 0.2 10^3/uL (0.0-0.8) 02/01/25 04:04 Baso # (Auto) 0.1 10^3/uL (0.0-0.1) 02/01/25 04:04 Nucleated RBC % (auto) 0 % 02/01/25 04:04 Nucleated RBCs # 0.0 /100WBC 02/01/25 04:04 PT 11.90 SECONDS (12.1-14.9) L 01/30/25 18:40 INR 0.82 (0.8-1.2) 01/30/25 18:40 APTT 27.4 SECONDS (23.9-36.7) 01/30/25 18:40 Sodium 143 mmol/L (136-145) 02/01/25 04:04 Potassium 3.9 mmol/L (3.5-5.1) 02/01/25 04:04 Chloride 109 mmol/L (98-107) H 02/01/25 04:04 Carbon Dioxide 23 mmol/L (22-29) 02/01/25 04:04 Anion Gap 14.9 (5-19) 02/01/25 04:04 BUN 7 mg/dL (6-20) 02/01/25 04:04 Creatinine 0.6 mg/dL (0.7-1.2) L 02/01/25 04:04 GFR Calculation 138.4 mL/min (90-130) H 02/01/25 04:04 Glucose 90 mg/dL (65-115) 02/01/25 04:04 POC Glucose 157 mg/dL (70-110) H 02/01/25 07:38 Estimat Average Glucose 186 01/31/25 19:58 Hemoglobin A1c 8.1 % (4.0-6.0) H 01/31/25 19:58 Calculated Osmolality 294 mOsm/kg (285-295) 02/01/25 04:04 Calcium 9.2 mg/dL (8.5-10.5) 02/01/25 04:04 Phosphorus 2.8 mg/dL (2.5-4.5) 02/01/25 04:04 Magnesium 1.6 mg/dL (1.7-2.3) L 02/01/25 04:04 Total Bilirubin 0.3 mg/dL (0.15-1.2) 02/01/25 04:04 AST 15 U/L (0-40) 02/01/25 04:04 ALT 12 U/L (0-41) 02/01/25 04:04 Alkaline Phosphatase 70 U/L (40-130) 02/01/25 04:04 C-Reactive Protein 3.0 mg/L (0.0-4.9) 02/01/25 04:04 NT-Pro-B Natriuret Pep 226 pg/mL (0-125) H 02/01/25 04:04 Total Protein 6.0 g/dL (6.6-8.7) L 02/01/25 04:04 Albumin 4.0 g/dL (3.5-5.2) 02/01/25 04:04 Globulin 2.0 g/dL (1.3-4.6) 02/01/25 04:04 Triglycerides 178 mg/dL (0-150) H 01/31/25 19:58 Cholesterol 143 mg/dL (0-200) 01/31/25 19:58 LDL Cholesterol, Calc 68 mg/dL (50-129) 01/31/25 19:58 HDL Cholesterol 39 mg/dL (60-100) L 01/31/25 19:58 LDL/HDL Ratio 1.74 RATIO (0.00-3.22) 01/31/25 19:58 Cholesterol/HDL Ratio 3.67 mg/dL (1.0-5.00) 01/31/25 19:58 Procalcitonin 0.03 ng/mL (0-0.5) 02/01/25 04:04 TSH 1.64 uIU/mL (0.27-4.20) 01/31/25 19:58 Urine Color Yellow (Yellow) 01/31/25 04:05 Urine Appearance Clear (CLEAR) 01/31/25 04:05 Urine pH 6.5 (5-7) 01/31/25 04:05 Ur Specific Usk 1.005 (1.005-1.030) 01/31/25 04:05 Urine Protein Trace (Negative) 01/31/25 04:05 Urine Glucose (UA) Norm (Normal) 01/31/25 04:05 Urine Ketones Negative (Negative) 01/31/25 04:05 Urine Blood Neg (Negative) 01/31/25 04:05 Urine Nitrate Negative (Negative) 01/31/25 04:05 Urine Bilirubin Neg (Negative) 01/31/25 04:05 Urine Urobilinogen Norm mg/dL (Negative) 01/31/25 04:05 Ur Leukocyte Esterase Negative (Negative) 01/31/25 04:05 Urine RBC 0-2 /hpf (0-2) 01/31/25 04:05 Urine WBC 0-5 /hpf (0-5) 01/31/25 04:05 Ur Squamous Epith Cells 0-5 /hpf (0-5) 01/31/25 04:05 Amorphous Sediment Not Reportable 01/31/25 04:05 Urine Bacteria None seen /hpf (NONE) 01/31/25 04:05 Hyaline Casts 1.65 /lpf 01/31/25 04:05 Urine Opiates Screen Positive ng/mL (Negative) H 01/31/25 04:05 Ur Barbiturates Screen Negative ng/mL (Negative) 01/31/25 04:05 Ur Phencyclidine Scrn Negative ng/mL (Negative) 01/31/25 04:05 Ur Amphetamines Screen Negative ng/mL (Negative) 01/31/25 04:05 U Benzodiazepines Scrn Positive ng/mL (Negative) H 01/31/25 04:05 Urine Cocaine Screen Negative ng/mL (Negative) 01/31/25 04:05 U Marijuana (THC) Screen Negative ng/mL (Negative) 01/31/25 04:05 Ethyl Alcohol < 10 mg/dL (0-10) 01/30/25 18:40 Vitals Last Vital Signs Temp 98.0 F 02/01/25 09:00 Pulse 74 02/01/25 10:00 Resp 18 02/01/25 10:00 BP 164/102 02/01/25 10:00 Pulse Ox 98 04/14/25 10:00 O2 Del Method Room Air 02/01/25 10:00 O2 Flow Rate 2 01/31/25 17:00 FiO2 30 01/31/25 11:30 Discharge Plan Discharge Patient Disposition: Home Condition: Serious Prescriptions: New losartan 50 mg Tablet 25 mg PO DAILY 30 Days Qty: 30 0RF aspirin 81 mg Tablet,Delayed Release (Dr/Ec) 81 mg PO Q24H 30 Days Qty: 30 0RF Janumet 50-1,000 mg tablet 1 tab PO BID Qty: 60 0RF Continued B Complex Plus Vitamin C 38-58-62-5-300 mg capsule 1 cap PO DAILY Rx Instructions: give with food (meal/snack) cholecalciferol (vitamin D3) 25 mcg (1,000 unit) capsule 25 mcg PO DAILY atorvastatin 40 mg tablet See Rx Instructions .ROUTE .COMPLEX Qty: 90 0RF Dose Instruction: Take 1 tablet by mouth once daily Rx Instructions: Take 1 tablet by mouth once daily fenofibrate nanocrystallized 48 mg tablet See Rx Instructions .ROUTE .COMPLEX Qty: 90 0RF Dose Instruction: Take 1 tablet by mouth once daily Rx Instructions: Take 1 tablet by mouth once daily Ozempic 1 mg/dose (4 mg/3 mL) pen injector See Rx Instructions .ROUTE .COMPLEX Qty: 3 0RF Dose Instruction: INJECT 1 MG SUB-Q ONCE A WEEK Rx Instructions: INJECT 1 MG SUB-Q ONCE A WEEK Discontinued metformin 500 mg tablet 1,000 mg PO BID Qty: 360 0RF Discharge Orders: Discharge Order (Routine); Ordered 02/01/25 Ordered By: Rocael Teixeira Referrals: William Lindo MD [Physician] - 03/30/25 11:00 am Rossana Brink MD [Primary Care Provider] - 02/15/25 2:20 pm Discharge Diet: Diabetic Discharge Activity: Resume usual activity and Increase activity as tolerated Patient Instructions: Aspirin (By mouth), Losartan (By mouth), Sitagliptin/Metformin (By mouth), Kidney Stones (DC), Basic Carbohydrate Counting (GEN), Ischemic Stroke (DC), Self Care Measures After a Stroke (DC), Hyperlipidemia (DC), Opioid Safety, Pain Management Activity Restrictions/Additional Instructions: Please check your blood pressure daily at home and doing blood pressure diary. Goal blood pressures between 100-140 systolic. Follow-up with a primary care provider within next 2 weeks with blood pressure diary further adjustment of antihypertensive. Metformin has been changed to Janumet. Please check your fasting blood sugar 2- 3 times a week and maintain a blood sugar diary. He should have a repeat A1c done in 6 months. You should follow-up with the cardiothoracic surgeon as an outpatient for further evaluation and management of intra-atrial shunt. Discharge Attestations Time Spent in Discharge Care*: greater than 30 min Specific Discharge Activities: educating patient, educating and/or supporting family/caregiver, discussing with pcp/other providers, discussing with rn case manager/social workers/dc planners, documenting/other paperwork and evaluating patient/reviewing data Status at Discharge: Cognitive status at discharge: cognitively intact , Behavioral status at discharge: cooperative , Functional status at discharge: independent ambulation , Overall status at discharge: patient is back to baseline Quality Metrics Clinical Quality Measures [ No reported AMI, CVA or VTE this stay] Coding Level of Care Code 83064 Total time (in minutes) for Discharge: 70 Diagnoses Occlusion of left vertebral artery I65.02 Diabetes mellitus E11.9 Acute CVA (cerebrovascular accident) I63.9 Hypertriglyceridemia E78.1
[2025-02-01 11:26] LABS: Glucose Point of Care 133 mg/dL (70-110)
--- NOTE | 2025-02-01 11:55 | PC.NURSE ---
Patient was given all discharge and new prescription information. Patient's IV was taken out. Patient left with their spouse. Patient was stable during discharge.
--- NOTE | 2025-02-01 15:04 | PC.OT ---
OT EVALUATION NOT COMPLETED DUE TO SCHEDULED PATIENT D/C
--- NOTE | 2025-02-10 09:31 | PC.NURSE ---
content coordinator follow up phone call completed- patient was asleep so I talked to his . They have a follow up with Dr. Lindo today. His blood pressures are being checked and documented by his and nothing over 140 systolic per . Patient is back to baseline now for the most part but reports tiredness earlier than usual. Overall doing well post TNKase.
== END 2025-02-01 11:45 | disposition home or self-care (01) | DRG 63 ==
LOC: ER 20:57 → ICU 21:25
PROVIDERS: Family Medicine; Admitting Provider Internal Medicine; Emergency Provider Emergency Medicine; PCP Family Medicine; Visit Provider Student in an Organized Health Care Education/Training Program
DX: I63.212 Cerebral infarction due to unspecified occlusion or stenosis of left vertebral artery (principal); R29.700 NIHSS score 0; E11.9 Type 2 diabetes mellitus without complications; E78.1 Pure hyperglyceridemia; I10 Essential (primary) hypertension; F17.210 Nicotine dependence, cigarettes, uncomplicated; E89.3 Postprocedural hypopituitarism; Z86.14 Personal history of Methicillin resistant Staphylococcus aureus infection; Z79.84 Long term (current) use of oral hypoglycemic drugs; Z79.85 Long-term (current) use of injectable non-insulin antidiabetic drugs; R26.89 Other abnormalities of gait and mobility
CPT/HCPCS: 36415; 36416; 70450; 70496; 70498; 70544; 80048; 80053; 80061; 80306; 80307; 81003; 82962; 83036; 83735; 83880; 84100; 84145; 84443; 85025; 85610; 85730; 86140; 92523; 92610; 93005; 93970; 96365; 96372; 96374; 96375; 96376; 97161; 99285; C8929; J0780; J1171; J1650; J1815; J2060; J2270; J2405; J3010; J3101; J3490; J7030; J9999

== ENCOUNTER 2025-02-15 14:36 | Emergency (ER) | payer OTHER, SELFPAY ==
[2025-02-15 14:39] VITALS: BP 141/83; PULSE 120; RESP 17; TEMP 36.9; O2SAT 93; BMI 24.8
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
--- NOTE | 2025-02-15 15:06 | PC.NURSE ---
PT PLACED IN C-COLLAR BY DR. CHEN.
[2025-02-15 15:48] LABS: Basophils # 0.1 10^3/uL (0.0-0.1); Basophils % 0.4 %; Eosinophils # 0.2 10^3/uL (0.0-0.8); Eosinophils % 0.9 %; Hematocrit 37.7 % (37-53); Lymphocytes # 3.4 10^3/uL (0.8-4.8); Lymphocytes % 18.2 %; Mean Corpuscular HGB Conc 33.7 g/dL (30-55); Mean Corpuscular Hemoglobin 29.8 pg (27-33); Mean Corpuscular Volume 88.5 fl (82-101); Mean Platelet Volume 10.6 fL (7.4-10.4); Monocytes # 1.2 10^3/uL (0.2-0.9); Monocytes % 6.1 %; Neutrophils # 13.79 10^3/uL (1.8-7.7); Neutrophils % 73.7 %; Nucleated Red Blood Cells % 0 %; Platelet Count 264 10^3/cmm (157-399); Red Blood Count 4.26 10^6/uL (3.85-5.65); Red Cell Distribution Width 12.7 % (12.1-15.1); White Blood Count 18.72 10^3/uL (3.29-11.43)
[2025-02-15 16:00] VITALS: BP 136/82; PULSE 108; O2SAT 93
[2025-02-15 16:14] LABS: Alanine Aminotransferase 17 U/L (0-41); Albumin Level 3.5 g/dL (3.5-5.2); Alkaline Phosphatase 75 U/L (40-130); Anion Gap 13.7 (5-19); Aspartate Amino Transferase 18 U/L (0-40); Blood Urea Nitrogen 12 mg/dL (6-20); Calcium 8.7 mg/dL (8.5-10.5); Carbon Dioxide 20 mmol/L (22-29); Chloride 106 mmol/L (98-107); Creatinine Clr Calc Pharmacy 142.7187; Globulin 2.3 g/dL (1.3-4.6); Glomerular Filtration Rate 138.4 mL/min (90-130); Glucose 145 mg/dL (65-115); Osmolality Calculated 284 mOsm/kg (285-295); Potassium 3.7 mmol/L (3.5-5.1); Sodium 136 mmol/L (136-145); Total Bilirubin 0.2 mg/dL (0.15-1.2); Total Protein 5.8 g/dL (6.6-8.7)
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
[2025-02-15 17:22] VITALS: RESP 17
[2025-02-15] MEDS: morphine 4 mg/mL SDV 1 mL IVP (17:22)
[2025-02-15] MEDS: ondansetron 2 mg/ML SDV 2 mL 4 MG IVP (17:23)
[2025-02-15] MEDS: tetanus-dipt-pertussis 0.5 mL SDV IM (17:24)
[2025-02-15] MEDS: bacitracin ointment Pkt 1 EACH TOPICAL (17:32)
[2025-02-15 17:44] VITALS: BP 111/74; PULSE 108; O2SAT 94
== END 2025-02-15 17:46 | disposition home or self-care (01) ==
PROVIDERS: Emergency Provider Family Medicine; PCP Family Medicine
DX: M70.52 Other bursitis of knee, left knee (principal); S22.43XA Multiple fractures of ribs, bilateral, initial encounter for closed fracture; V29.99XA Rider (driver) (passenger) of other motorcycle injured in unspecified traffic accident, initial encounter; S60.221A Contusion of right hand, initial encounter
CPT/HCPCS: 36415; 70450; 71045; 71260; 72125; 73130; 73562; 74177; 80053; 85025; 90471; 90715; 96374; 96375; 99285; J2270; J2405; J9999

== ENCOUNTER 2025-02-15 18:43 | Emergency (ER) | payer OTHER, SELFPAY ==
[2025-02-15] VITALS (11 sets, daily range): BP systolic 77–121; BP diastolic 54–73; PULSE 83–124; RESP 12–20; TEMP 36.6; O2SAT 92–99; BMI 24.1
[2025-02-15] MEDS: sodium chloride 0.9% 1,000 ML 999 ML IV (19:31)
--- NOTE | 2025-02-15 19:33 | ECG_ITS ---
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1965 Requested By: Angelica Yates Order Number: [id number] Hoda MD: JACOBO SANDERS Measurements Intervals [place] Rate: 85 P: 79 TN: 152 QRS: -36 QRSD: 117 T: 38 QT: 362 QTc: 433 Interpretive Statements SINUS RHYTHM LEFT AXIS DEVIATION [QRS AXIS < -30] INCOMPLETE RIGHT BUNDLE BRANCH BLOCK [90+ ms QRS DURATION, TERMINAL R IN V1/V2, 40+ ms S IN I/aVL/V4/V5/V6] Compared to ECG 01/30/2025 18:37:12 Left-axis deviation now present Incomplete right bundle-branch block now present Myocardial infarct finding no longer present Electronically Signed On 02-15-2025 20:57:40 CDT by JACOBO SANDERS [email or web address]
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
[2025-02-15 19:47] LABS: Basophils # 0.1 10^3/uL (0.0-0.1); Basophils % 0.6 %; Eosinophils # 0.1 10^3/uL (0.0-0.8); Eosinophils % 0.5 %; Hematocrit 40.7 % (37-53); Lymphocytes # 4.4 10^3/uL (0.8-4.8); Lymphocytes % 18.8 %; Mean Corpuscular HGB Conc 33.2 g/dL (30-55); Mean Corpuscular Hemoglobin 29.7 pg (27-33); Mean Corpuscular Volume 89.5 fl (82-101); Mean Platelet Volume 11.2 fL (7.4-10.4); Monocytes # 1.5 10^3/uL (0.2-0.9); Monocytes % 6.2 %; Neutrophils % 73.2 %; Nucleated Red Blood Cells % 0 %; Platelet Count 327 10^3/cmm (157-399); Red Blood Count 4.55 10^6/uL (3.85-5.65); White Blood Count 23.61 10^3/uL (3.29-11.43)
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
[2025-02-15 20:16] LABS: Alanine Aminotransferase 21 U/L (0-41); Albumin Level 3.7 g/dL (3.5-5.2); Alkaline Phosphatase 77 U/L (40-130); Blood Urea Nitrogen 13 mg/dL (6-20); Calcium 9.2 mg/dL (8.5-10.5); Carbon Dioxide 16 mmol/L (22-29); Chloride 106 mmol/L (98-107); Creatinine Clr Calc Pharmacy 109.0036; Globulin 2.7 g/dL (1.3-4.6); Glomerular Filtration Rate 99.3 mL/min (90-130); Glucose 174 mg/dL (65-115); Osmolality Calculated 286 mOsm/kg (285-295); Sodium 136 mmol/L (136-145); Total Bilirubin 0.2 mg/dL (0.15-1.2); Total Protein 6.4 g/dL (6.6-8.7)
[2025-02-15 20:17] LABS: Lactic Sepsis W/Reflex 2.7 mmol/L (0.5-2.2)
[2025-02-15 20:20] LABS: Anion Gap 18.2 (5-19); Aspartate Amino Transferase 25 U/L (0-40); Potassium 4.2 mmol/L (3.5-5.1)
[2025-02-15] MEDS: ondansetron 2 mg/ML SDV 2 mL 4 MG IVP (21:13)
[2025-02-15] MEDS: morphine 4 mg/mL SDV 1 mL IVP (21:14)
[2025-02-15] MEDS: ceFAZolin 2,000 mg SDV 2000 MG IVP (21:18)
[2025-02-15] MEDS: HYDROcodone-acetaminophen 10-325 mg Tablet 2 TAB PO (21:18)
[2025-02-15 21:30] LABS: Reflex Lactate Order REFLEX LACTIC ORDERD
== END 2025-02-15 22:14 | disposition home or self-care (01) ==
PROVIDERS: Emergency Provider Emergency Medicine; PCP Family Medicine
DX: S91.012A Laceration without foreign body, left ankle, initial encounter (principal); S22.43XD Multiple fractures of ribs, bilateral, subsequent encounter for fracture with routine healing; I95.89 Other hypotension; S80.02XD Contusion of left knee, subsequent encounter; V29.99XD Rider (driver) (passenger) of other motorcycle injured in unspecified traffic accident, subsequent encounter; E11.9 Type 2 diabetes mellitus without complications; E78.5 Hyperlipidemia, unspecified; F17.210 Nicotine dependence, cigarettes, uncomplicated
CPT/HCPCS: 73700; 80053; 83605; 85025; 86850; 86900; 93005; 96361; 96374; 96375; 99285; J0690; J2270; J2405; J7030; J9999

== ENCOUNTER 2025-02-23 17:08 | Emergency (ER) | payer OTHER, SELFPAY ==
[2025-02-23 17:16] VITALS: BP 134/76; PULSE 94; RESP 16; TEMP 36.4; O2SAT 98
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
[2025-02-23 19:10] VITALS: BP 155/78; PULSE 88; RESP 16; O2SAT 98
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
[2025-02-23] MEDS: cephALEXin 500 mg Capsule PO (19:48)
[2025-02-23] MEDS: sulfamethoxazole-trimeth DS 160-800 mg Tablet 1 TAB PO (19:48)
[2025-02-23] MEDS: oxyCODONE-APAP 10-325 mg Tablet 1 TAB PO (20:18)
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
[2025-02-23 21:15] VITALS: BP 135/67; PULSE 86; RESP 16; O2SAT 95
[2025-02-23 22:52] VITALS: BP 132/63; PULSE 75; RESP 16; O2SAT 94
--- NOTE | 2025-02-24 07:33 | DCPLANNER ---
Message sent to Ortho for follow up-Patient is presented with left lower extremity swelling and edema will evaluate for DVT and obtain a DVT ultrasound. X-ray of the ankle is negative for acute pathology. Will cover with a course of antibiotics for potential cysts infection. And administer pain medications to treat the patient's pain. Case discussed with orthopedics Dr. Grady who agrees with plan and can follow-up in the office as an outpatient. Return precautions provided to the patient he is eager to go home we will discharge.
== END 2025-02-23 23:00 | disposition home or self-care (01) ==
PROVIDERS: Emergency Provider Emergency Medicine; PCP Family Medicine
DX: R60.0 Localized edema (principal); S80.02XA Contusion of left knee, initial encounter; Z79.82 Long term (current) use of aspirin; F17.210 Nicotine dependence, cigarettes, uncomplicated; E11.9 Type 2 diabetes mellitus without complications; E78.5 Hyperlipidemia, unspecified; V29.99XA Rider (driver) (passenger) of other motorcycle injured in unspecified traffic accident, initial encounter
CPT/HCPCS: 73610; 93971; 99284; J9999

== ENCOUNTER 2025-03-08 12:46 | Outpatient (CLI) | payer OTHER, SELFPAY ==
--- NOTE | 2025-03-08 13:00 | MR_ITS ---
WS: [id number] MRI BRAIN WITH AND WITHOUT CONTRAST HISTORY: I65.02 - Occlusion and stenosis of left vertebral artery COMPARISON: CT head 02/15/2025 TECHNIQUE: Multiplanar imaging performed through the brain with MultiHance 17 ml's IV. No acute diffusion abnormalities or acute infarct. Small remote lacunar infarcts in the LEFT cerebellum. Multiple small infarcts are identified. Mild scattered T2 and FLAIR signal hyperintensities in the subcortical white matter and around the ventricles. No hemosiderin. No hippocampal atrophy. Mild cerebral and cerebellar atrophy. Ventricles and extra-axial spaces are normal. Clivus and pituitary gland are normal. Brainstem is normal. Variable signal on the T1 sequences involving several infarcts in the LEFT cerebellum. On the postcontrast there is no enhancement. No enhancing masses are identified. Reidentified is small caliber distal LEFT vertebral artery which does not enhance. Smaller caliber LEFT transverse sinus. No filling defects. Paranasal sinuses: Well aerated with no significant disease. Mastoid air cells: Extensive RIGHT mastoid air cell effusion. Calvarium and scalp: Normal. MR/MR head wo/w con [id number] IMPRESSION: 1. Diffusion imaging is normal. No acute infarct. 2. 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 Nonhemorrhagic in farct. 3. No enhancing masses or vascular malformations. No hemorrhage. 4. Mild small vessel ischemic disease in the periventricular white matter. 5. RIGHT mastoid air cell effusion. 6. Nonvisualization distal LEFT vertebral artery. Correlate with prior imaging studies and suspicious for occlusion.
--- NOTE | 2025-03-08 13:45 | MR_ITS ---
WS: [id number] MRA CAROTID ARTERIES HISTORY: I65.02 - Occlusion and stenosis of left vertebral artery COMPARISON: CT angiogram head and neck 01/30/2025, TECHNIQUE: MRA is performed with intravenous gadolinium. MIP and source images are reviewed. Right: RIGHT common cervical, internal/external carotid arteries are widely patent. Left: LEFT common cervical, internal/external carotid arteries are widely patent. Subclavian Arteries: Normal. Vertebral Arteries: Dominant diffuse RIGHT vertebral artery. Intermittently seen in very small caliber LEFT vertebral artery. LEFT vertebral artery origin is not identified. The on the skull base the vertebral arteries not well visualized. The foramen magnum vertebral artery is absent. Similar findings were noted on prior CT angiogram. Cannot exclude thrombus in the LEFT vertebral artery. MR/MR angio neck w con* [id number] IMPRESSION: 1. Very small caliber and intermittently visualized LEFT vertebral artery. As noted on prior imaging studies thrombus/dissection not excluded. 2. Dominant RIGHT vertebral artery. 3. No high-grade cervical carotid artery stenosis.
[2025-03-08] MEDS: gadobenate dimeglumine 20 mL vial 17 ML IV (14:28)
--- NOTE | 2025-03-08 14:30 | MR_ITS ---
WS: [id number] MRA ANGIOGRAPHY [place] HISTORY: I65.02 - Occlusion and stenosis of left vertebral artery COMPARISON: CTA 01/30/2025. Prior MR angiogram 02/01/2025 TECHNIQUE: 3-D MR angiography is performed of the [place]. All images are reviewed including source images. Patient has a known occlusion of the distal LEFT vertebral artery. Very dominant large RIGHT vertebral artery. Patent basilar artery is also prominent. No occlusions or thrombus. Normal vascularity of the TERMINAL CLERK territory. Intracranial carotid arteries are patent through the skull base to the supraclinoid region. Middle and anterior cerebral arteries are patent. No thrombus or occlusion identified. MR/MR angio head wo con [id number] IMPRESSION: 1. Stable MR angiogram [place] since 02/01/2025. 2. Patient has a known occluded distal LEFT vertebral artery. 3. Dominant RIGHT vertebral artery. 4. No atherosclerosis or aneurysm within the [place].
== END 2025-03-08 12:47 | disposition home or self-care (01) ==
LOC: RAD 12:48
PROVIDERS: PCP Family Medicine; Visit Provider Psychiatry & Neurology Neurology
DX: I65.02 Occlusion and stenosis of left vertebral artery (principal); I63.9 Cerebral infarction, unspecified; I67.89 Other cerebrovascular disease; R93.0 Abnormal findings on diagnostic imaging of skull and head, not elsewhere classified; H74.8X1 Other specified disorders of right middle ear and mastoid
CPT/HCPCS: 70544; 70548; 70553

== ENCOUNTER 2025-03-11 06:44 | Day surgery (SDC) | payer OTHER, SELFPAY ==
[2025-03-11 07:06] VITALS: BP 117/62; PULSE 97; RESP 16; TEMP 36.4; O2SAT 96
[2025-03-11] MEDS: sodium chloride 0.9% 1,000 ML 15 ML IV (07:19)
[2025-03-11 07:21] LABS: Glucose Point of Care 211 mg/dL (70-110)
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
--- NOTE | 2025-03-11 07:54 | W.PM.OPSUD ---
Surgery/Procedure H&P Update DATE OF PROCEDURE: March 11, 2025 DATE H&P PERFORMED: 02/16/25 H&P UPDATE INFORMATION: I have reviewed H&P completed within last 30 days, I have examined patient prior to procedure and No changes to prior documentation PREOP DIAGNOSIS: PFO PRIMARY INDICATION FOR PROCEDURE: CVA, PFO PLANNED PROCEDURE: Operation Date: 03/11/25 08:00 Proposed Procedures p NAOMIE(Not Applicable) - Bonnie Musa MD PATIENT REASSESSED PRIOR TO SEDATION, WITH NO CHANGE NOTED: Yes PHYSICAL EXAM: alert, oriented x 3, clear to auscultation bilaterally and regular rate & rhythm AIRWAY EVAL/ANESTHESIA PLAN: normal airway, see other exam findings, ASA II, Monitored Anesthesia, Local Anesthesia, Risks, benefits & alternatives of sedation and/or procedure discussed and Patient agrees to continue as planned
[2025-03-11 08:34] VITALS: BP 110/60; PULSE 90; RESP 100; O2SAT 100
[2025-03-11 08:42] VITALS: BP 133/71; PULSE 94; RESP 94; O2SAT 94
--- NOTE | 2025-03-11 09:03 | ANE.PACU2 ---
Inpatient post-anesthesia follow up: Airway intact: Yes Vital signs: Temperature 97.5 F Pulse Rate 94 Respiratory Rate 94 Blood Pressure 133/71 Pulse Oximetry 94 Oxygen Delivery Me thod Room Air Oxygen Flow Rate Fraction of Inspir ed Oxygen Hydration adequate: Yes Nausea and vomiting: No Pain level: 1 Mental status: Baseline
--- NOTE | 2025-03-11 09:14 | PM.OP ---
Operative Report Date of procedure: March 11, 2025 Surgeon: Bonnie Musa MD Procedure: The patient underwent NAOMIE under IV sedation, administered by the anesthesia service. He was found to have a PFO measuring 0.24 cm in diameter. No intracardiac masses. Left atrial appendage, free of thrombus. Will continue on the current management
== END 2025-03-11 09:03 | disposition home or self-care (01) ==
PROVIDERS: PCP Family Medicine; Visit Provider Internal Medicine Cardiovascular Disease
PROC: (CPT 93312; principal; 2025-03-11 08:00)
DX: Q21.12 Patent foramen ovale (principal); E78.00 Pure hypercholesterolemia, unspecified; E11.9 Type 2 diabetes mellitus without complications; F17.210 Nicotine dependence, cigarettes, uncomplicated; Z86.73 Personal history of transient ischemic attack (TIA), and cerebral infarction without residual deficits; Z79.85 Long-term (current) use of injectable non-insulin antidiabetic drugs; Z79.82 Long term (current) use of aspirin; Z79.899 Other long term (current) drug therapy; Z79.84 Long term (current) use of oral hypoglycemic drugs
CPT/HCPCS: 36416; 82962; 93312; 93320; 93325; J2704; J3010; J7030; J9999

== ENCOUNTER 2025-05-11 13:29 | Outpatient (CLI) | payer OTHER, SELFPAY | END 2025-05-11 13:30 | disposition home or self-care (01) | LOC: SLEEP 13:30 | PROVIDERS: PCP Family Medicine; Referring Provider Family Medicine; Visit Provider Internal Medicine Pulmonary Disease | DX: G47.33 Obstructive sleep apnea (adult) (pediatric) (principal); I63.9 Cerebral infarction, unspecified | CPT/HCPCS: G0399 ==

== ENCOUNTER → 2025-06-16 14:22 | Outpatient (BNVA) | payer OTHER, SELFPAY | PROVIDERS: PCP Family Medicine; Visit Provider Internal Medicine Cardiovascular Disease | DX: Q21.12 Patent foramen ovale (principal) | CPT/HCPCS: 93005 ==

== ENCOUNTER → 2025-07-07 14:12 | Outpatient (BNVA) | payer OTHER, SELFPAY | PROVIDERS: PCP Family Medicine; Visit Provider Family Medicine | DX: E78.00 Pure hypercholesterolemia, unspecified (principal); E78.1 Pure hyperglyceridemia; E04.1 Nontoxic single thyroid nodule; E11.9 Type 2 diabetes mellitus without complications | CPT/HCPCS: 80053; 80061; 83036; 84443; 85025 ==

== ENCOUNTER 2025-07-16 14:46 | Outpatient (CLI) | payer OTHER, SELFPAY ==
--- NOTE | 2025-07-16 15:00 | USR_ITS ---
PROCEDURE INFORMATION: Exam: US Soft Tissue Head and Neck, Thyroid Exam date and time: 07/16/2025 02:56 PM Age: 59 years old Clinical indication: Other: Nodules seen on CT fu; Additional info: F/u thyroid nodule noted on neck CT TECHNIQUE: Imaging protocol: Real-time ultrasound scan of the neck with image documentation. Exam focused on the thyroid. COMPARISON: MR angio neck w con* [id number] 03/08/2025 01:48 PM FINDINGS: Right Lobe: 4.4 x 2.2 x 1.6 cm Left Lobe: 5.1 x 2.6 x 2.7 cm Isthmus: 0.4 cm Overall Parenchymal Echotexture: Homogeneous Thyroid nodule(s): Location: Right inferior Size: 0.9 x 1.1 x 1.2 cm Composition: Mixed cystic and solid, 1 Echogenicity: Hyper or isoechoic, 1 Shape: Wide, 0 Margins: Lobulated or irregular, 2 Echogenic Foci: None, 0 TOTAL POINTS: 4, TI-RADS 4 Location: Left mid , hypervascular peripheral solid component Size: 2.7 x 2.0 x 3.0 cm Composition: Mixed cystic and solid, 1 Echogenicity: Hyper or isoechoic, 1 Shape: Wide, 0 Margins: Lobulated, 2 Echogenic Foci: None, 0 TOTAL POINTS: 4, TI-RADS 4 US/US thyroid [id number] IMPRESSION: 1. Two thyroid nodules, both TI-RADS 4. - Follow up recommendations as per the ACR TI-RADS criteria below TI-RADS Classification TR1 - Benign; no FNA TR2 - Not Suspicoius; No FNA TR3 - Mildly Suspicious; FNA if >or= 2.5cm, Follow if >or= 1.5cm TR4 - Moderately Suspicious; FNA if >or= 1.5cm, Follow if >or= 1cm TR5 - Highly Suspicous; FNA if >or= 1cm, Follow if >or= 0.5cm
== END 2025-07-16 14:47 | disposition home or self-care (01) ==
LOC: RAD 14:48
PROVIDERS: PCP Family Medicine; Visit Provider Family Medicine
DX: E04.1 Nontoxic single thyroid nodule (principal)
CPT/HCPCS: 76536

== ENCOUNTER → 2025-10-06 14:42 | Outpatient (BNVA) | payer OTHER, SELFPAY | PROVIDERS: PCP Family Medicine; Visit Provider Family Medicine | DX: E11.9 Type 2 diabetes mellitus without complications (principal); E78.2 Mixed hyperlipidemia | CPT/HCPCS: 80053; 80061; 83036 ==